=== PATIENT | female | born 1995 | race Two or more races ===

== ENCOUNTER 2019-10-04 08:58 | Emergency (ER) | payer OTHER ==
[2019-10-04 09:08] VITALS: BP 125/84; PULSE 63; TEMP 97.9; BMI 25.4
--- NOTE | 2019-10-04 09:09 | PDOC ---
Rapid Medical Evaluation Time Seen by Provider: 10/04/19 09:06 Medical Evaluation: 10/04/19 09:07 I have performed a brief in-person evaluation of this patient. The patient presents with a chief complaint of:lower back pain x 4 days. No trauma, neuro or sxs. Had same 1 month ago and seen at [facility] w/ no clear dx Pertinent physical exam findings:peña uncomfortable at triage, ambulating, stable I have ordered the following:ua/cx/upreg The patient will proceed to the ED for further evaluation. Discharge Disposition - Diagnosis Low back pain Qualifiers: Chronicity: acute Back pain laterality: bilateral Sciatica presence: without sciatica Qualified Code(s): M54.5 - Low back pain - Referrals - Patient Instructions - Post Discharge Activity
--- NOTE | 2019-10-04 09:17 | PDOC ---
History of Present Illness - General Chief Complaint: Back Pain Stated Complaint: LOWER BACK PAIN Time Seen by Provider: 10/04/19 09:06 History Source: Patient Exam Limitations: No Limitations Past History - Travel History Traveled outside of the country in the last 30 days: No Close contact w/someone who was outside of country & ill: No - Medical History Allergies/Adverse Reactions: Allergies Allergy/AdvReac Type Severity Reaction Status Date / Time No Known Allergies Allergy Verified 10/04/19 11:13 Home Medications: Ambulatory Orders Methocarbamol [Robaxin -] 500 mg PO BID #14 tablet 10/04/19 Methylprednisolone [Medrol -] 4 mg PO ASDIR #21 tablet 10/04/19 COPD: No Other medical history: DENIES - Reproductive History Is Patient Now?: No - Immunization History Immunization Up to Date: No - Psycho-Social/Smoking History Smoking History: Never smoked - Substance Abuse Hx (Audit-C & DAST Scrn) How often the patient has a drink containing alcohol: Never Score: In Men: 4 or > Positive; In Women: 3 or > Positive: 0 Screen Result (Pos requires Nsg. Audit-10AR): Negative In the last yr the pt used illegal drug/Rx for NonMed reason: No Score: Yes response is considered Positive: 0 Screen Result (Positive result requires Nsg. DAST-10): Negative Review of Systems - Review of Systems Able to Perform ROS?: Yes Comments:: 10/04/19 11:07 CONSTITUTIONAL: Absent: fever, chills, diaphoresis, generalized weakness, malaise, loss of appetite GASTROINTESTINAL: Absent: abdominal pain, abdominal distension, nausea, vomiting, diarrhea, constipation, melena, hematochezia GENITOURINARY: Absent: dysuria, frequency, urgency, hesitancy, hematuria, flank pain, genital pain MUSCULOSKELETAL: Present: low back pain Absent: arthralgia, joint swelling SKIN: Absent: rash, itching, pallor NEUROLOGIC: Absent: headache, focal weakness or paresthesias, dizziness, unsteady gait, seizure, mental status changes, bladder or bowel incontinence PSYCHIATRIC: Absent: anxiety, depression, suicidal or homicidal ideation, hallucinations. Is the patient limited Turkmen proficient: No *Physical Exam - Vital Signs Last Vital Signs Temp Pulse Resp BP Pulse Ox 97.9 F 63 20 125/84 100 10/04/19 09:00 10/04/19 09:00 10/04/19 09:00 10/04/19 09:00 10/04/19 09:00 - Physical Exam 10/04/19 11:11 04/04/19 11:56 GENERAL: Well developed, well nourished. Awake and alert. No acute distress. NECK: Supple. Full ROM. No lymphadenopathy. MUSCULOSKELETAL Normal range of motion at all joints. No bony deformities or tenderness. No CVA tenderness. EXTREMITIES: No cyanosis. No clubbing. No edema. No calf tenderness. SKIN: Warm and dry. Normal capillary refill. No rashes. No jaundice. NEUROLOGICAL: Alert, awake, appropriate. Cranial nerves 2-12 intact. No deficits to light touch and temperature in face, upper extremities and lower extremities. No motor deficits in the in face, upper extremities and lower extremities. Normoreflexic in the upper and lower extremities. Normal speech. Toes are down-going bilaterally. Gait is normal without ataxia. PSYCHIATRIC: Cooperative. Good eye contact. Appropriate mood and affect. Medical Decision Making - Medical Decision Making 10/04/19 11:11 Patient is a 24-year-old female with no past medical history, presents to the ER with 4 weeks of low back pain. She has been seen at [facility] multiple times for the same issue. She states that she is been given naproxen and Flexeril with little relief of her symptoms. 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 She notes that the pain runs down her right leg. Denies numbness and tingling to the groin, bladder bowel incontinence, dysuria, hematuria, nausea, vomiting and diarrhea. A/P: Low back pain -Pt with TTP of the L paraspinous muscles, L3-L5, with palpable knot consistent with muscle spasm. -No trauma, or fever. No saddle anesthesia or bladder/bowel incontinence. No CVA tenderness. -Pt is neurologically intact on exam with no focal findings. -X-ray shows no acute pathology of the low back. -UA unlikely showing active infection. Will wait for Urine Culture. -Toradol given with relief of symptoms -DC home. Ortho follow up given for if symptoms do not resolve. -I discussed the physical exam findings, ancillary test results and final diagnoses with the patient. I answered all of the patient's questions. The patient was satisfied with the care received and felt comfortable with the discharge plan and treatment plan. The Patient agrees to follow up with the primary care physician/specialist within 24-72 hours. Return precautions were given. Discharge - Discharge Information Problems reviewed: Yes Clinical Impression/Diagnosis: Low back pain Qualifiers: Chronicity: acute Back pain laterality: bilateral Sciatica presence: without sciatica Qualified Code(s): M54.5 - Low back pain Condition: Stable Disposition: HOME - Admission No - Additional Discharge Information Prescriptions: Methylprednisolone [Medrol -] 4 mg PO ASDIR #21 tablet Methocarbamol [Robaxin -] 500 mg PO BID #14 tablet - Follow up/Referral Referrals: [facility] [place] [facility] [place] [Provider Group] - Patient Discharge Instructions Patient Printed Discharge Instructions: DI for Low Back Pain Additional Instructions: You have low back pain due to a muscle spasm. Please take the steroid taper as directed. You were also prescribed Robaxin, a muscle relaxer. Take this twice a day. Do not drive after taking this medication as it may make you sleepy. You may use warm compresses on your back to help with her symptoms. Your x-ray was normal. Please follow-up with your primary care doctor. If your symptoms do not resolve in 3-5 days, follow-up with orthopedics. A referral has been provided for you. Return to the emergency department if you have worsening back pain, bladder or bowel incontinence, numbness and tingling in her legs, changes in the way you walk, or any new or worsening symptoms. Tiene dolor lumbar debido a un espasmo muscular. [place] el cono esteroide segn las indicaciones. Tambin le recetaron Robaxin, un relajante muscular. Elizabeth esto dos veces al da. No conduzca despus de swapna perez medicamento, ya que puede causarle sueo. Puede usar compresas tibias en la espalda para ayudarla con enrique sntomas. Tu radiografa era normal. Bob un seguimiento con ashraf mdico de atencin primaria. Si enrique sntomas no se resuelven en 3-5 escudero, bob un seguimiento con ortopedia. Se le mast proporcionado marie referencia. Regrese al departamento de emergencias si tiene empeoramiento del dolor de espalda, incontinencia de vejiga o intestino, entumecimiento y hormigueo en las piernas, cambios en la forma de caminar o cualquier sntoma nuevo o que empeore. Print Language: SERBIAN - Post Discharge Activity Work/Back to School Note: Back to Work
[2019-10-04] MEDS ORDERED: LIDOCAINE 5% TOPICAL PATCH TP ONE (10:34)
[2019-10-04] MEDS ORDERED: ACETAMINOPHEN 500 MG TABLET (FP) PO ONE (11:15)
[2019-10-04] MEDS ORDERED: KETOROLAC TROMETHAMINE 60 MG/2 ML VIAL IM ONE (11:15)
[2019-10-04] MEDS ORDERED: KETOROLAC TROMETHAMINE 30 MG/1 ML VIAL IM ONE (11:15)
[2019-10-04] MEDS ORDERED: KETOROLAC TROMETHAMINE 30 MG/1 ML VIAL ONE (11:16)
[2019-10-04] MEDS ORDERED: LIDOCAINE 5% TOPICAL PATCH ONE (11:16)
[2019-10-04] MEDS ORDERED: ACETAMINOPHEN 500 MG TABLET (FP) ONE (11:16)
[2019-10-04 11:30] LABS: EPI CELLS >36 /uL (0-25.1); HYALINE CASTS 3 /uL (0-3.1); PH,URINE 5.5 (5.0-8.0); URINE APPEARANCE CLEAR; URINE BACTERIA 643 /uL (0-1359); URINE BILIRUBIN NEGATIVE (NEGATIVE); URINE COLOR YELLOW; URINE GLUCOSE (UA) NEGATIVE (NEGATIVE); URINE KETONE NEGATIVE (NEGATIVE); URINE LEUK ESTERASE TRACE (NEGATIVE); URINE NITRITE NEGATIVE (NEGATIVE); URINE PROTEIN NEGATIVE (NEGATIVE); URINE RBC 14 /uL (0-23.9); URINE UROBILINOGEN 0.2 mg/dL (0.2-1.0); URINE WBC 51 /uL (0-25.8)
== END 2019-10-04 12:04 | disposition home or self-care (01) ==
LOC: JERFT 08:58
PROC: 3E0233Z Introduction of Anti-inflammatory into Muscle, Percutaneous Approach (ICD-10-PCS; principal; 2019-10-04)
DX: M54.5 Low back pain (principal)
CPT/HCPCS: 72100-TC-FY; 81003; 84703; 87086; 99285-25